=== PATIENT | female | born 1945 | race Asian ===

== ENCOUNTER 2017-09-16 08:26 | Outpatient (CLI) | payer OTHER ==
[~2017-09-16] VITALS: Ht 157.5 cm; Wt 67.1 kg
[~2017-09-16 08:26] MED LIST: FLONASE16 GM NS
== END 2017-09-16 08:45 | disposition home or self-care (01) ==
LOC: OFIC 805 08:26
DX: H93.13 Tinnitus, bilateral (principal); J31.0 Chronic rhinitis; R09.81 Nasal congestion

== ENCOUNTER 2017-10-09 08:42 | Outpatient (CLI) | payer OTHER ==
[~2017-10-09] VITALS: Ht 152.4 cm; Wt 67.1 kg
== END 2017-10-09 09:00 | disposition home or self-care (01) ==
LOC: OFIC 805 08:42
DX: H93.13 Tinnitus, bilateral (principal); H53.143 Visual discomfort, bilateral